=== PATIENT | female | born 1985 | race American Indian/Alaskan Native ===

== ENCOUNTER 2017-12-29 10:20 | Emergency (ER) | payer MEDICAID ==
[2017-12-29 10:53] VITALS: BP 114/81
[2017-12-29] MEDS ORDERED: TYLENOL PO ONE (12:35)
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
== END 2017-12-29 15:02 | disposition left against medical advice (07) ==
LOC: ED 10:20
DX: S39.012A Strain of muscle, fascia and tendon of lower back, initial encounter (principal); F17.200 Nicotine dependence, unspecified, uncomplicated; V89.2XXA Person injured in unspecified motor-vehicle accident, traffic, initial encounter; Y93.89 Activity, other specified; Y92.89 Other specified places as the place of occurrence of the external cause; Y99.8 Other external cause status
CPT/HCPCS: 99281

== ENCOUNTER 2021-08-31 10:29 | Emergency (ER) | payer MEDICAID ==
[2021-08-31 11:27] VITALS: BP 115/68
[2021-08-31 13:50] LABS: Bacteria,Urine 1+ /HPF (Negative); Bilirubin,Urine NEG (Negative); Blood,Urine SM (Negative); Color,Urine Yellow (Yellow); Mucus,Urine 1+ /HPF; Protein,Urine <15 mg/dL mg/dL (Negative)
== END 2021-08-31 13:28 | disposition left against medical advice (07) ==
LOC: ED 10:29
DX: O9A.212 Injury, poisoning and certain other consequences of external causes complicating pregnancy, second trimester (principal); S81.832A Puncture wound without foreign body, left lower leg, initial encounter; Z53.21 Procedure and treatment not carried out due to patient leaving prior to being seen by health care provider; W54.0XXA Bitten by dog, initial encounter; Y93.89 Activity, other specified; Y92.89 Other specified places as the place of occurrence of the external cause; Y99.8 Other external cause status
CPT/HCPCS: 81001